=== PATIENT | male | born 1935 | race Caucasian/White ===

== ENCOUNTER 2019-08-30 11:40 | Emergency (ER) | payer MEDICARE, OTHER, SELFPAY ==
[2019-08-30 11:45] VITALS: BP 166/71; PULSE 74; RESP 20; TEMP 36.6; O2SAT 98; BMI 25.0
--- NOTE | 2019-08-30 12:01 | DI.CT.S_ITS ---
PROCEDURE: CT HEAD/BRAIN WO CON INDICATIONS: Ground level fall last night TECHNIQUE: Noncontrast 4.5 mm thick angled axial sections acquired from the foramen magnum to the vertex, with coronal and sagittal reformats. For radiation dose reduction, the following was used: automated exposure control, adjustment of mA and/or kV according to patient size. COMPARISON: None. FINDINGS: Image quality: Excellent. CSF spaces: Basal cisterns are patent. No extra-axial fluid collections. The ventricles are symmetric in size and shape. Brain: No intracranial bleeds or masses. There is cerebral volume loss for age, with resultant ventricular and sulcal prominence. There are periventricular and deep white matter chronic small vessel ischemic changes. There is intracranial internal carotid artery and vertebral artery atherosclerosis. Skull and face: Calvarium and visualized facial bones appear intact, without suspicious lesions. Sinuses: Polypoid mucosal thickening noted in the maxillary sinuses bilaterally. The mastoids are clear. IMPRESSION: No acute intracranial disease process. Dictated by: Janett Bautista MD, PhD on 08/30/2019 at 13:08 Approved by: Janett Bautista MD, PhD on 08/30/2019 at 13:11
[2019-08-30 12:27] LABS: Add Manual Diff / Slide Review NO; Basophils Absolute Auto 0 /uL (0-100); Basophils Percent Auto 0.7 % (0-2); Eosinophils Absolute Auto 0 /uL (0-450); Eosinophils Percent Auto 0.5 % (2-4); Hematocrit 33.1 % (41-53); Hemoglobin 11.4 g/dL (13.5-17.5); Lymphocytes Absolute Auto 1300 /uL (1100-4500); Lymphocytes Percent Auto 20.4 % (25-40); Mean Corpuscular HGB Conc 34.5 % (30-36); Mean Corpuscular Hemoglobin 32.7 PG (26-34); Mean Corpuscular Volume 94.8 fL (80-100); Monocytes Absolute Auto 700 /uL (0-900); Monocytes Percent Auto 11.2 % (3-14); Neutrophils Absolute Auto 4300 /uL (1500-7000); Neutrophils Percent Auto 67.2 % (50-75); Platelet Count 211 X10^3/uL (150-400); Red Blood Cell Count 3.49 X10^6/uL (4.5-5.9); Red Cell Distribution Width 14.7 % (11.6-14.8); White Blood Cell Count 6.3 X10^3/uL (4.5-11.0)
[2019-08-30 12:42] LABS: Albumin 4.4 g/dL (3.5-5.0); Albumin Globulin Ratio 1.4 (1.0-2.8); Alkaline Phosphatase 94 U/L (38-126); Aspartate Aminotransferase 31 IU/L (17-59); BUN Creatinine Ratio 13.8 (6-22); Bilirubin Total 0.7 mg/dL (0.2-1.3); Blood Urea Nitrogen 12 mg/dL (9-20); Calcium 9.5 mg/dL (8.4-10.2); Carbon Dioxide 28 mmol/L (22-32); Chloride 103 mmol/L (98-107); Estimated Glomerular Filt Rate > 60.0 mL/min (>60); Globulin 3.2 g/dL (1.7-4.1); Glucose 93 mg/dL (80-110); HEMOLYSIS < 15 (0-50); Potassium 4.4 mmol/L (3.4-5.1); Sodium 137 mmol/L (137-145); Total Protein 7.6 g/dL (6.3-8.2)
[2019-08-30] MEDS: MORPHINE 2 MG/ML INJ IV (12:46)
--- NOTE | 2019-08-30 12:48 | DI.CT.S_ITS ---
PROCEDURE: CT CHEST ABD PEL W CON INDICATIONS: glf, rib pain, abd pain TECHNIQUE: After the administration of intravenous contrast, 5 mm thick sections acquired from the lung apices to the symphysis. 2.5 mm thick coronal and sagittal reformats were acquired. Additional 7 mm thick coronal maximum intensity projection (MIP) reformats acquired through the lungs. Optional 10-minute delayed imaging may be performed from the kidneys to the bladder. For radiation dose reduction, the following was used: automated exposure control, adjustment of mA and/or kV according to patient size. COMPARISON: [facility], CT, CHEST WITH CONTRAST, 08/18/2010, 7:53. [facility], CR, XR CHEST 1 VIEW, 04/23/2019, 21:59. FINDINGS: Image quality: Excellent. CHEST: Lungs: No pulmonary contusions or lacerations. No acute airspace opacities. No pneumothorax or hemothorax. Calcified granuloma, right upper lobe, image 100/2. 3 mm pleural-based density, right lung, image 191/2. Reference image 100/2. Central and peripheral airways appear patent and normal in caliber. Mediastinum: No mediastinal hematomas. Heart size is normal. No pericardial effusion. Remote CABG. Advanced atherosclerotic coronary calcifications. Thoracic aorta and pulmonary arteries demonstrate normal size and enhancement. No mediastinal or hilar adenopathy. Calcified subcarinal mediastinal lymph node. Calcified right hilar lymph node. Findings consistent with chronic granulomatous disease. Esophagus is normal in caliber. Moderate hiatal hernia. Chest wall: Subtle, nondisplaced fractures of the lateral right 8th and 9th ribs. subcutaneous emphysema. No axillary or supraclavicular adenopathy. Thyroid gland is unremarkable as visualized. ABDOMEN: Solid organs: Liver is normal in size and enhancement, without lacerations. Gallbladder is unremarkable. Biliary system is non-dilated. Pancreas enhances normally, without transection. Spleen is normal in size and enhancement, without lacerations. Calcified splenic granuloma No adrenal hematomas. Both kidneys enhance normally, without hydronephrosis or lacerations. Peritoneum and bowel: No free fluid or air. Unenhanced bowel loops demonstrate normal wall thickness and caliber. Sigmoid diverticulosis. Nodes and vessels: No retroperitoneal or mesenteric adenopathy. Aorta and inferior vena cava are normal in size and enhancement. Advanced abdominal aortic atherosclerotic calcifications. Miscellaneous: No ventral hernias. PELVIS: Genitourinary: Bladder wall is mildly thickened. Miscellaneous: No inguinal hernias or adenopathy. Bones: Pelvic ring and hip joints appear intact. No vertebral compression fractures. A calcified free disc fragment behind T12 results in mild canal stenosis. IMPRESSION: 1. Subtle nondisplaced fractures of the lateral right 8th and 9th ribs with no evidence of underlying pneumothorax. 2. No other significant sequelae of acute trauma. 3. Advanced coronary atherosclerosis, aortic atherosclerosis. 4. Sigmoid diverticulosis. 5. Moderate hiatal hernia. Dictated by: Andrew Hirsch M.D. on 08/30/2019 at 13:22 Approved by: Andrew Hirsch M.D. on 08/30/2019 at 13:33
[2019-08-30 12:58] LABS: Alanine Aminotransferase 14 IU/L (<50)
[2019-08-30 13:35] VITALS: BP 141/63; PULSE 71; RESP 16; O2SAT 99
[2019-08-30] MEDS: LIDOCAINE PATCH 1 EACH ADH..PATCH TOP (13:45)
--- NOTE | 2019-08-30 15:32 | ED_ITS ---
HPI - Fall <JEWEL Gibson - Last Filed: 08/30/19 15:38> General Chief Complaint: Fall Stated Complaint: thinks broke rib, right back pain Time Seen by Provider: 08/30/19 11:49 Source: patient Mode of arrival: Wheelchair Limitations: no limitations History of Present Illness HPI Narrative: The patient is an 84-year-old male former smoker with history of bypass surgery who presents with a chief complaint of right-sided rib pain after ground level fall yesterday. He had a mechanical fall when he was in his socks on a hardwood floor, landed with his right side of his ribs into his chair. He now complains of painful deep breathing, pain to his ribs, radiating around his abdomen. He is not initially sure whether not he lost consciousness, does not think he does. He denies any pain in his neck or back. He denies any shortness of breath, just painful deep breathing. He has not taken anything for pain. He denies any numbness or tingling. He questions whether not his ribs are broken. Given that the patient had a ground level fall with suspected injury over the age of 65, modified trauma was activated for this patient. No known blood thinners, just aspirin. Patient later clarifies that he slipped and landed with his ribs on a chair, did not hit his head. Related Data Home Medications Medication Instructions Recorded Confirmed atorvastatin [Lipitor] #0 01/12/17 cyanocobalamin (vitamin B-12) 500 mcg OR Q DAY #0 01/12/17 isosorbide mononitrate #0 01/12/17 tamsulosin [Flomax] #0 01/12/17 Previous Rx's Medication Instructions Recorded lidocaine 1 patch TOP DAILY PRN #15 each 08/30/19 Allergies Allergy/AdvReac Type Severity Reaction Status Date / Time No Known Drug Allergies Allergy Verified 08/30/19 11:54 Review of Systems <JEWEL Gibson - Last Filed: 08/30/19 15:38> Review of Systems Narrative: GENERAL: Denies chills, fatigue, malaise, fever, sweats. HEENT: Denies sinus pain, ear pain, sore throat, difficulty swallowing, dizziness. RESPIRATORY: See HPI CARDIOVASCULAR: Denies chest pain, palpitations, orthopnea, edema, GASTROINTESTINAL: Denies nausea, vomiting, abdominal pain, diarrhea, constipation, melena. : Denies dysuria, frequency, incontinence, hematuria, urinary retention. MUSCULOSKELETAL: See HPI SKIN: Denies rash, skin lesions, or other NEUROLOGIC: Denies weakness, headache, numbness, change in speech, confusion, seizures, incoordination. PSYCHIATRIC: No concerning psychosocial issues. 12 point review of systems is negative except for those stated above Patient History <Farheen ZANE Dumont - Last Filed: 08/30/19 15:38> Social History Smoking Status: Unknown if ever smoked Smoking Status: Unknown if ever smoked alcohol intake frequency: holidays/special occasions only Substance Use Type: does not use Exam <Farheen DumontZANE - Last Filed: 08/30/19 15:38> Narrative Exam Narrative: GENERAL: This is a well-nourished, well-developed patient, in no acute distress HEAD: Atraumatic. Normocephalic. No temporal or scalp tenderness. EYES: Pupils equal round and reactive. Extraocular motions intact. No scleral icterus. No injection or drainage. ENT: Nose without bleeding, purulent drainage or septal hematoma. Throat without erythema, tonsillar hypertrophy or exudate. Uvula midline. Airway patent. NECK: Trachea midline. No JVD or lymphadenopathy. Supple, nontender, no meningeal signs. CARDIOVASCULAR: Regular rate and rhythm without murmurs, gallops, or rubs. RESPIRATORY: Clear to auscultation. Breath sounds equal bilaterally. No wheezes, rales, or rhonchi. Pain to palpation of right lateral ribs. Pain to lateral chest wall compression as well as anterior posterior chest wall compression. GASTROINTESTINAL: Abdomen soft, non-tender, nondistended. No hepato- splenomegaly, or palpable masses. No guarding. EXTREMITIES: No clubbing, cyanosis, or edema. No joint tenderness, effusion, or edema noted. BACK: Nontender without deformity or crepitance. No flank tenderness. No pain to palpation of CT or L-spine. NEURO: AOx3. SKIN: No rash or erythema on visible skin. No erythema ecchymosis laceration or abrasion noted over left lateral ribs. Initial Vital Signs Initial Vital Signs: Vital Signs Temperature 97.9 F 08/30/19 11:45 Pulse Rate 74 08/30/19 11:45 Respiratory Rate 08/30/19 11:45 Blood Pressure 166/71 H 08/30/19 11:45 Pulse Oximetry 98 08/30/19 11:45 <Jorge L Castro MD - Last Filed: 08/30/19 18:30> Initial Vital Signs Initial Vital Signs: Vital Signs Temperature 97.9 F 08/30/19 11:45 Pulse Rate 74 08/30/19 11:45 Respiratory Rate 08/30/19 11:45 Blood Pressure 166/71 H 08/30/19 11:45 Pulse Oximetry 98 08/30/19 11:45 Scores <JEWEL Gibson - Last Filed: 08/30/19 15:38> GCS Renan coma scale eye opening: Spontaneous [place] coma scale verbal response: Orientated Renan coma scale motor response: Obey commands [place] coma scale total score: 15 Nexus Score for C-Spine Focal Neurologic deficit present: No Midline spinal tenderness present: No Altered level of conciousness present: No Intoxication present: No Distracting Injury Present: No Nexus Criteria for C-spine: 0 Course <JEWEL Gibson - Last Filed: 08/30/19 15:38> Orders Ordered: ED Orders 08/30/19 12:01 CT head/brain wo con Stat 08/30/19 12:15 Complete Blood Count AUTO DIFF Stat Comprehensive Metabolic Panel Stat 08/30/19 12:48 CT chest abd pel w con Stat 08/30/19 13:43 RT Consult Eval and Treat NOW Discontinued Medications Lidocaine (Lidoderm) 1 each TOP NOW ONE Stop: 08/30/19 13:44 Last Admin: 08/30/19 13:45 Dose: 1 each Documented by: CTRFERNANDA Morphine Sulfate (Morphine) 2 mg IV NOW ONE Stop: 08/30/19 12:02 Last Admin: 08/30/19 12:46 Dose: 2 mg Documented by: RANJANA Vital Signs Vital signs: Vital Signs - 8 hr 08/30/19 11:45 08/30/19 13:35 Temperature 97.9 F Pulse Rate 74 71 Respiratory Rate 20 16 Blood Pressure 166/71 H 141/63 H Pulse Oximetry 98 99 <Jorge L Castro MD - Last Filed: 08/30/19 18:30> Orders Ordered: ED Orders 08/30/19 12:01 CT head/brain wo con Stat 08/30/19 12:15 Complete Blood Count AUTO DIFF Stat Comprehensive Metabolic Panel Stat 08/30/19 12:48 CT chest abd pel w con Stat 08/30/19 13:43 RT Consult Eval and Treat NOW Discontinued Medications Lidocaine (Lidoderm) 1 each TOP NOW ONE Stop: 08/30/19 13:44 Last Admin: 08/30/19 13:45 Dose: 1 each Documented by: SHALA Morphine Sulfate (Morphine) 2 mg IV NOW ONE Stop: 08/30/19 12:02 Last Admin: 08/30/19 12:46 Dose: 2 mg Documented by: RANJANA Vital Signs Vital signs: Vital Signs - 8 hr 08/30/19 11:45 08/30/19 13:35 Temperature 97.9 F Pulse Rate 74 71 Respiratory Rate 20 16 Blood Pressure 166/71 H 141/63 H Pulse Oximetry 98 99 MDM - Fall <MIKE Gibson-BC - Last Filed: 08/30/19 15:38> Lab Data Result diagrams: 08/30/19 12:15 08/30/19 12:15 Labs: Lab Results 08/30/19 08/30/19 Range/Units 12:15 12:15 WBC 6.3 (4.5-11.0) X10^3/uL RBC 3.49 L (4.5-5.9) X10^6/uL Hgb 11.4 L (13.5-17.5) g/dL Hct 33.1 L (41-53) % MCV 94.8 (80-100) fL MCH 32.7 (26-34) PG MCHC 34.5 (30-36) % RDW 14.7 (11.6-14.8) % Plt Count 211 (150-400) X10^3/uL Neut % (Auto) 67.2 (50-75) % Lymph % (Auto) 20.4 L (25-40) % [place] % (Auto) 11.2 (3-14) % Eos % (Auto) 0.5 L (2-4) % Baso % (Auto) 0.7 (0-2) % Neut # (Auto) 4300 (4075-3246) /uL Lymph # (Auto) 1300 (7427-3102) /uL [place] # (Auto) 700 (0-900) /uL Eos # (Auto) 0 (0-450) /uL Baso # (Auto) 0 (0-100) /uL Sodium 137 (137-145) mmol/L Potassium 4.4 (3.4-5.1) mmol/L Chloride 103 (98-107) mmol/L Carbon Dioxide 28 (22-32) mmol/L BUN 12 (9-20) mg/dL Creatinine 0.87 (0.66-1.25) mg/dL Estimated GFR > 60.0 (>60) mL/min BUN/Creatinine Ratio 13.8 (6-22) Glucose 93 (80-110) mg/dL Calcium 9.5 (8.4-10.2) mg/dL Total Bilirubin 0.7 (0.2-1.3) mg/dL AST 31 (17-59) IU/L ALT 14 (<50) IU/L Alkaline Phosphatase 94 (38-126) U/L Total Protein 7.6 (6.3-8.2) g/dL Albumin 4.4 (3.5-5.0) g/dL Globulin 3.2 (1.7-4.1) g/dL Albumin/Globulin Ratio 1.4 (1.0-2.8) Imaging Data CT scan - abdomen/pelvis: Radiologist's Impression: [address] [place] [address] CT Scan Report Signed Patient: Janett Mix [facility]#: [id number] : 7Acct:[id number] Age/Sex: 84 / MDate of Service: 08/30/19 Loc: ED Accession Number: [id number] Procedure: CT chest abd pel w con Ordering Provider: Farheen Dumont [facility] PROCEDURE: CT CHEST ABD PEL W CON INDICATIONS: glf, rib pain, abd pain TECHNIQUE: After the administration of intravenous contrast, 5 mm thick sections acquired from the lung apices to the symphysis. 2.5 mm thick coronal and sagittal reformats were acquired. Additional 7 mm thick coronal maximum intensity projection (MIP) reformats acquired through the lungs. Optional 10-minute delayed imaging may be performed from the kidneys to the bladder. For radiation dose reduction, the following was used: automated exposure control, adjustment of mA and/or kV according to patient size. COMPARISON: [facility], CT, CHEST WITH CONTRAST, 08/18/2010, 7:53. [facility], CR, XR CHEST 1 VIEW, 04/23/2019, 21:59. FINDINGS: Image quality: Excellent. CHEST: Lungs: No pulmonary contusions or lacerations. No acute airspace opacities. No pneumothorax or hemothorax. Calcified granuloma, right upper lobe, image 100/2. 3 mm pleural-based density, right lung, image 191/2. Reference image 100/2. Central and peripheral airways appear patent and normal in caliber. Mediastinum: No mediastinal hematomas. Heart size is normal. No pericardial effusion. Remote CABG. Advanced atherosclerotic coronary calcifications. Thoracic aorta and pulmonary arteries demonstrate normal size and enhancement. No mediastinal or hilar adenopathy. Calcified subcarinal mediastinal lymph node. Calcified right hilar lymph node. Findings consistent with chronic granulomatous disease. Esophagus is normal in caliber. Moderate hiatal hernia. Chest wall: Subtle, nondisplaced fractures of the lateral right 8th and 9th r ibs. subcutaneous emphysema. No axillary or supraclavicular adenopathy. Thyroid gland is unremarkable as visualized. ABDOMEN: Solid organs: Liver is normal in size and enhancement, without lacerations. Gallbladder is unremarkable. Biliary system is non-dilated. Pancreas enhances normally, without transection. Spleen is normal in size and enhancement, without lacerations. Calcified splenic granuloma No adrenal hematomas. Both kidneys enhance normally, without hydronephrosis or lacerations. Peritoneum and bowel: No free fluid or air. Unenhanced bowel loops demonstrate normal wall thickness and caliber. Sigmoid diverticulosis. Nodes and vessels: No retroperitoneal or mesenteric adenopathy. Aorta and inferior vena cava are normal in size and enhancement. Advanced abdominal aortic atherosclerotic calcifications. Miscellaneous: No ventral hernias. PELVIS: Genitourinary: Bladder wall is mildly thickened. Miscellaneous: No inguinal hernias or adenopathy. Bones: Pelvic ring and hip joints appear intact. No vertebral compression fractures. A calcified free disc fragment behind T12 results in mild canal stenosis. IMPRESSION: 1. Subtle nondisplaced fractures of the lateral right 8th and 9th ribs with no evidence of underlying pneumothorax. 2. No other significant sequelae of acute trauma. 3. Advanced coronary atherosclerosis, aortic atherosclerosis. 4. Sigmoid diverticulosis. 5. Moderate hiatal hernia. Dictated by: Andrew Hirsch M.D. on 08/30/2019 at 13:22 Approved by: Andrew Hirsch M.D. on 08/30/2019 at 13:33 CT scan - head: Radiologist's Impression: [address] [place] [id number] Scan Report Signed Patient: Janett Mix [facility]#: [id number] : 7Acct:[id number] Age/Sex: 84 / MDate of Service: 08/30/19 Loc: ED Accession Number: [id number] Procedure: CT head/brain wo con Ordering Provider: Farheen Dumont CLIENT SERVICES ADMINISTRATOR- PROCEDURE: CT HEAD/BRAIN WO CON INDICATIONS: Ground level fall last night TECHNIQUE: Noncontrast 4.5 mm thick angled axial sections acquired from the foramen magnum to the vertex, with coronal and sagittal reformats. For radiation dose reduction, the following was used: automated exposure control, adjustment of mA and/or kV according to patient size. COMPARISON: None. FINDINGS: Image quality: Excellent. CSF spaces: Basal cisterns are patent. No extra-axial fluid collections. The ventricles are symmetric in size and shape. Brain: No intracranial bleeds or masses. There is cerebral volume loss for age, with resultant ventricular and sulcal prominence. There are periventricular and deep white matter chronic small vessel ischemic changes. There is intracranial internal carotid artery and vertebral artery atherosclerosis. Skull and face: Calvarium and visualized facial bones appear intact, without suspicious lesions. Sinuses: Polypoid mucosal thickening noted in the maxillary sinuses bilaterally. The mastoids are clear. IMPRESSION: No acute intracranial disease process. Dictated by: Janett Bautista MD, PhD on 08/30/2019 at 13:08 Approved by: Janett Bautista MD, PhD on 08/30/2019 at 13:11 [facility] Narrative Medical decision making narrative: The patient is an 84-year-old male who presents after a ground level slip and fall with a chief complaint of rib pain. Modified trauma activated given mechanism as well as age. Given his pain, CT was obtained of his chest abdomen pelvis. Head CT also obtained given mechanism as well as age and aspirin.. Patient was found to have two right lateral rib fractures. Patient was given a lidocaine patch, adamantly declined any pain medication or pills. He received evaluation by respiratory therapy as well as incentive spirometer teaching and splint cough teaching. I discussed at length the importance of following up with primary care provider the next few days. Also discussed coming back to emergency department for any acute concerns. Patient again declined any pain medications, stating that ?the pain isn't that bad.Encouraged PCP follow-up. The patient was ambulating around, stating that he wanted to go home. Patient has no questions or concerns upon discharge and states understanding of return precautions as well as follow-up care. <Jorge L Castro MD - Last Filed: 08/30/19 18:30> Lab Data Labs: Lab Results 08/30/19 08/30/19 Range/Units 12:15 12:15 WBC 6.3 (4.5-11.0) X10^3/uL RBC 3.49 L (4.5-5.9) X10^6/uL Hgb 11.4 L (13.5-17.5) g/dL Hct 33.1 L (41-53) % MCV 94.8 (80-100) fL MCH 32.7 (26-34) PG MCHC 34.5 (30-36) % RDW 14.7 (11.6-14.8) % Plt Count 211 (150-400) X10^3/uL Neut % (Auto) 67.2 (50-75) % Lymph % (Auto) 20.4 L (25-40) % [place] % (Auto) 11.2 (3-14) % Eos % (Auto) 0.5 L (2-4) % Baso % (Auto) 0.7 (0-2) % Neut # (Auto) 4300 (3674-4099) /uL Lymph # (Auto) 1300 (6094-6435) /uL [place] # (Auto) 700 (0-900) /uL Eos # (Auto) 0 (0-450) /uL Baso # (Auto) 0 (0-100) /uL Sodium 137 (137-145) mmol/L Potassium 4.4 (3.4-5.1) mmol/L Chloride 103 (98-107) mmol/L Carbon Dioxide 28 (22-32) mmol/L BUN 12 (9-20) mg/dL Creatinine 0.87 (0.66-1.25) mg/dL Estimated GFR > 60.0 (>60) mL/min BUN/Creatinine Ratio 13.8 (6-22) Glucose 93 (80-110) mg/dL Calcium 9.5 (8.4-10.2) mg/dL Total Bilirubin 0.7 (0.2-1.3) mg/dL AST 31 (17-59) IU/L ALT 14 (<50) IU/L Alkaline Phosphatase 94 (38-126) U/L Total Protein 7.6 (6.3-8.2) g/dL Albumin 4.4 (3.5-5.0) g/dL Globulin 3.2 (1.7-4.1) g/dL Albumin/Globulin Ratio 1.4 (1.0-2.8) Discharge Plan Departure Patient Disposition: Home Clinical Impression: Fall from ground level Rib fractures Qualifiers: Encounter type: initial encounter Rib fracture type: multiple ribs Fracture type: open Laterality: right Qualified Code(s): S22.41XB - Multiple fractures of ribs, right side, initial encounter for open fracture Discharge Date/Time: 08/30/19 14:35 Instructions: How to Use an Incentive Spirometer, DI for Rib Fracture, How to Prevent Falls Activity Restrictions/Additional Instructions: Thank you for trusting us with your care today. As discussed, you have fractures of your 8th and 9th ribs of your right side I sent a prescription of a pain patch to the [facility] pharmacy. You have declined oral pain medications several times. As discussed, please use the incentive spirometer to help prevent pneumonia Please follow-up with primary care provider in the next few days Please come back to the emergency department for any acute concerns Prescriptions: New lidocaine 5 % adhesive patch,medicated 1 patch TOP DAILY PRN (Reason: pain) Qty: 15 RF: 0 No Action atorvastatin [Lipitor] 40 MG tablet Qty: 0 RF: 0 tamsulosin [Flomax] 0.4 MG capsule,extended release 24hr Qty: 0 RF: 0 cyanocobalamin (vitamin B-12) 1,000 MCG tablet extended release 500 mcg OR Q DAY Qty: 0 RF: 0 isosorbide mononitrate 30 MG tablet extended release 24 hr Qty: 0 RF: 0 Referrals: [facility] [Provider Group] <Jorge L Castro MD - Last Filed: 08/30/19 18:30> Cosign ED Attending Cosignature Attestation: I was immediately available in the department for consultation. This documentation has been reviewed and I agree with assessment and plan. Supervised by Jorge L Castro MD
== END 2019-08-30 14:35 | disposition home or self-care (01) ==
PROVIDERS: Emergency Provider Nurse Practitioner Family
DX: S22.41XB Multiple fractures of ribs, right side, initial encounter for open fracture (principal); W18.30XA Fall on same level, unspecified, initial encounter; Z79.82 Long term (current) use of aspirin
CPT/HCPCS: 70450; 71260; 74177; 80053; 85025; 96374; 99284; J2270; Q9967

== ENCOUNTER 2019-09-07 11:25 | Emergency (ER) | payer MEDICARE, OTHER, SELFPAY ==
[2019-09-07 11:25] VITALS: BMI 25.5
--- NOTE | 2019-09-07 11:40 | DI.RAD.S_ITS ---
PROCEDURE: XR RIBS RT MIN 3V W CXR 1V INDICATIONS: fall/current broken rib 8 9. TECHNIQUE: 2 views of the right ribs were acquired, along with a single view chest. COMPARISON: None. FINDINGS: Surgical changes and devices: Sternotomy wires, prior cervical fusion plate from the past.. Bones and chest wall: No dislocations. No suspicious bony lesions. Overlying soft tissues appear unremarkable. There are minimally angulated acute appearing fractures involving the right lateral lower 8th, 9th and 10th ribs Lungs and pleura: No pleural effusions or pneumothorax. Lungs appear clear. Mediastinum: Mediastinal contours appear normal. Heart size is normal. IMPRESSION: Right lateral lower 8th through 10th rib fractures, acute in appearance Dictated by: Jaquan Nuno M.D. on 09/07/2019 at 12:33 Approved by: Jaquan Nuno M.D. on 09/07/2019 at 12:35
--- NOTE | 2019-09-07 13:49 | PC.NURSE ---
Patient came into the ED today complaining of 9/10 rib pain. Chest xray shows right 8th and 10th rib fractures. He does not report to have shortness of breath other than pain from ribs when breathing. He is alert and oriented. His daughter is at bedside.
[2019-09-07 13:54] VITALS: BP 143/66; PULSE 59; RESP 12; O2SAT 97
--- NOTE | 2019-09-07 14:08 | PC.NURSE ---
Patient came into the ED for xrays of his ribs. He states that he fell from a mechanical fall and does not have eye trouble. He did not feel dizzy or weak. He also does not have weakness.
[2019-09-07] MEDS: HYDROCODONE/ACET 5/325 TABLET 1 TAB PO (14:17)
--- NOTE | 2019-09-07 14:29 | ED_ITS ---
HPI - Fall <JEWEL Gibson - Last Filed: 09/07/19 15:57> General Chief Complaint: Fall Stated Complaint: Fell last night,previously fractured ribs a week Time Seen by Provider: 09/07/19 13:29 Source: patient Mode of arrival: Wheelchair Limitations: no limitations History of Present Illness HPI Narrative: The patient is an 84-year-old male former smoker with history of rib fractures and right-sided presents with a chief complaint of ground level falls yesterday. He states he tripped while in his shop, when he got tangled up in fishing netting. He states he landed on the cement after landing on his knees. He complains of right sided rib pain where his fractures were. He is concerned he broke another rib. Did not hit his head, denies any neck or back pain, denies any numbness or tingling. He was using lidocaine patches for his prior rib fractures, but developed a rash. He has stopped using them. He denies any abdominal pain, he denies any shortness of breath, states it is painful to laugh. Patient adamantly declines admission. He also states he does not want any imaging other than rib x-rays. He is adamant that he had a mechanical fall, did not get lightheaded and fall. Related Data Home Medications Medication Instructions Recorded Confirmed atorvastatin [Lipitor] #0 01/12/17 cyanocobalamin (vitamin B-12) 500 mcg OR Q DAY #0 01/12/17 isosorbide mononitrate #0 01/12/17 tamsulosin [Flomax] #0 01/12/17 Previous Rx's Medication Instructions Recorded lidocaine 1 patch TOP DAILY PRN #15 each 08/30/19 hydrocodone-acetaminophen [Quinn] 1 tab PO Q4-6H PRN #10 tab 09/07/19 Allergies Allergy/AdvReac Type Severity Reaction Status Date / Time lidocaine [From LidoPatch] AdvReac Blister Verified 09/07/19 11:42 menthol [From LidoPatch] AdvReac Blister Verified 09/07/19 11:42 Review of Systems <JEWEL Gibson - Last Filed: 09/07/19 15:57> Review of Systems Narrative: GENERAL: Denies chills, fatigue, malaise, fever, sweats. HEENT: Denies sinus pain, ear pain, sore throat, difficulty swallowing, dizziness. RESPIRATORY: See HPI CARDIOVASCULAR: Denies chest pain, palpitations, orthopnea, edema, GASTROINTESTINAL: Denies nausea, vomiting, abdominal pain, diarrhea, constipation, melena. : Denies dysuria, frequency, incontinence, hematuria, urinary retention. MUSCULOSKELETAL: See HPI SKIN: See HPI NEUROLOGIC: Denies weakness, headache, numbness, change in speech, confusion, seizures, incoordination. PSYCHIATRIC: No concerning psychosocial issues. 12 point review of systems is negative except for those stated above Patient History <Farheen HadleyMIKE aguilera- - Last Filed: 09/07/19 15:57> Social History Smoking Status: Unknown if ever smoked Smoking Status: Unknown if ever smoked alcohol intake frequency: holidays/special occasions only Substance Use Type: does not use Exam <Farheen JONAH DumontP- - Last Filed: 09/07/19 15:57> Narrative Exam Narrative: GENERAL: This is a well-nourished, well-developed patient, no acute distress HEAD: Atraumatic. Normocephalic. No temporal or scalp tenderness. EYES: Pupils equal round and reactive. Extraocular motions intact. No scleral icterus. No injection or drainage. ENT: Nose without bleeding, purulent drainage or septal hematoma. Airway patent. NECK: Trachea midline. No JVD or lymphadenopathy. Supple, nontender, no meningeal signs. CARDIOVASCULAR: Regular rate and rhythm RESPIRATORY: Clear to auscultation. Breath sounds equal bilaterally. No wheezes, rales, or rhonchi. No cough. No increased respiratory effort. No accessory muscle use. Pain to palpation right lateral ribs. Pain to anterior posterior c hest wall compression as well as lateral chest wall compression. GASTROINTESTINAL: Abdomen soft, non-tender, nondistended. No hepato- splenomegaly, or palpable masses. No guarding. EXTREMITIES: No clubbing, cyanosis, or edema. No joint tenderness, effusion, or edema noted. BACK: Nontender without deformity or crepitance. No flank tenderness. NEURO: AOx3. SKIN: Localized erythema noted area of lidocaine patch, right posterior ribs. No laceration or abrasion noted. Initial Vital Signs Initial Vital Signs: Vital Signs Pulse Rate 59 L 09/07/19 13:54 Respiratory Rate 12 09/07/19 13:54 Blood Pressure 143/66 H 09/07/19 13:54 Pulse Oximetry 97 09/07/19 13:54 <Jefferson Rodgers MD - Last Filed: 09/08/19 08:02> Initial Vital Signs Initial Vital Signs: Vital Signs Pulse Rate 59 L 09/07/19 13:54 Respiratory Rate 12 09/07/19 13:54 Blood Pressure 143/66 H 09/07/19 13:54 Pulse Oximetry 97 09/07/19 13:54 Scores <JEWEL Gibson - Last Filed: 09/07/19 15:57> GCS Renan coma scale eye opening: Spontaneous Renan coma scale verbal response: Orientated Renan coma scale motor response: Obey commands Webster coma scale total score: 15 Nexus Score for C-Spine Focal Neurologic deficit present: No Midline spinal tenderness present: No Altered level of conciousness present: No Intoxication present: No Distracting Injury Present: No Nexus Criteria for C-spine: 0 Course <JEWEL Gibson - Last Filed: 09/07/19 15:57> Orders Ordered: Discontinued Medications Hydrocodone Bitart/Acetaminophen (Quinn 5/325) 1 tab PO NOW ONE Stop: 09/07/19 14:10 Last Admin: 09/07/19 14:17 Dose: 1 tab Documented by: MERLY Vital Signs Vital signs: Vital Signs - 8 hr 09/07/19 13:54 09/07/19 14:59 09/07/19 15:00 Pulse Rate 59 L 63 63 Respiratory Rate 12 14 14 Blood Pressure 143/66 H 145/65 H 145/65 H Pulse Oximetry 97 99 99 <Jefferson Rodgers MD - Last Filed: 09/08/19 08:02> Orders Ordered: Discontinued Medications Hydrocodone Bitart/Acetaminophen (Quinn 5/325) 1 tab PO NOW ONE Stop: 09/07/19 14:10 Last Admin: 09/07/19 14:17 Dose: 1 tab Documented by: MERLY Vital Signs Vital signs: Vital Signs - 8 hr 09/07/19 13:54 09/07/19 14:59 09/07/19 15:00 Pulse Rate 59 L 63 63 Respiratory Rate 12 14 14 Blood Pressure 143/66 H 145/65 H 145/65 H Pulse Oximetry 97 99 99 MDM - Fall <Farheen Dumont [employer] - Last Filed: 09/07/19 15:57> [facility] Narrative Medical decision making narrative: The patient is an 84-year-old male who presents with a chief complaint of a mechanical fall yesterday. He is concerned about his previous rib fractures, for which he was seen on 08/30/2019. He is noted to have 2 right-sided rib fractures that time, now has 3. Patient adamantly declines any further imaging, is not concerned about head pain or neck pain. He denies any head pain or neck pain, the only imaging that he will consent to are rib films. The patient is alert oriented, competent to make his own decisions. He received Quinn for pain and feels much improved. Respiratory therapy saw him to do splint cough lea hector, reminder of IS. The patient adamantly does not want to be considered for admission to the hospital, states he going home regardless. I discussed at length the importance of following up with primary care provider. Encouraged him to go talk to her about physical therapy given that he has had multiple mechanical falls in the past few weeks. Patient and daughter state understanding, have no questions or concerns. I discussed at length again come back to the emergency department for any acute concerns at any point. Patient has no questions or concerns upon discharge. States understanding return precautions as well as follow-up care. Patient ambulates steady outside in the emergency department Discharge Plan Departure Patient Disposition: Home Clinical Impression: Fall from ground level Rib fractures Qualifiers: Encounter type: initial encounter Rib fracture type: multiple ribs Fracture type: closed Laterality: right Qualified Code(s): S22.41XA - Multiple fractures of ribs, right side, initial encounter for closed fracture Discharge Date/Time: 09/07/19 15:02 Instructions: How to Use an Incentive Spirometer, DI for Rib Fracture, How to Prevent Falls Activity Restrictions/Additional Instructions: Thank you for trusting us with your care today. As discussed, you have a 3rd rib fracture on your right side. Please do your best to stop falling. I suggest following up with primary care provider. Physical therapy may be helpful for you. Please come back to the emergency department for any acute concerns. As discuss ed, you have declined further imaging, and have declined to the possibility of admission. Please remember that you can come back to the emergency department for any acute concerns. Please keep using her incentive spirometer etcetera I have given you a prescription of a narcotic for pain. Be aware that this can be constipating and sedating. I encouraged taking with a stool softener, pushing fluids and fiber. Do not take and drive, operate heavy machinery, etc. Do not combine it with any other sedating substances such as alcohol. The combination of narcotics and alcohol and/or other sedatives can be lethal. Prescriptions: New hydrocodone-acetaminophen [Quinn] 5-325 mg tablet 1 tab PO Q4-6H PRN (Reason: pain) Qty: 10 RF: 0 No Action atorvastatin [Lipitor] 40 MG tablet Qty: 0 RF: 0 tamsulosin [Flomax] 0.4 MG capsule,extended release 24hr Qty: 0 RF: 0 cyanocobalamin (vitamin B-12) 1,000 MCG tablet extended release 500 mcg OR Q DAY Qty: 0 RF: 0 isosorbide mononitrate 30 MG tablet extended release 24 hr Qty: 0 RF: 0 lidocaine 5 % adhesive patch,medicated 1 patch TOP DAILY PRN (Reason: pain) Qty: 15 RF: 0 Referrals: [facility] [Outside]
[2019-09-07 14:59] VITALS: BP 145/65; PULSE 63; RESP 14; O2SAT 99
[2019-09-07 15:00] VITALS: BP 145/65; PULSE 63; RESP 14; O2SAT 99
== END 2019-09-07 15:02 | disposition home or self-care (01) ==
PROVIDERS: Emergency Provider Nurse Practitioner Family
DX: S22.41XA Multiple fractures of ribs, right side, initial encounter for closed fracture (principal); W18.30XA Fall on same level, unspecified, initial encounter
CPT/HCPCS: 71101; 99283

== ENCOUNTER 2020-05-16 13:21 | Emergency (ER) | payer MEDICARE, OTHER, SELFPAY ==
[2020-05-16 13:25] VITALS: BP 132/66; PULSE 80; RESP 16; TEMP 36.2; O2SAT 99; BMI 22.1
--- NOTE | 2020-05-16 13:26 | DI.RAD.S_ITS ---
PROCEDURE: XR WRIST LT MIN 3V INDICATIONS: fall TECHNIQUE: 3 views of the wrist were acquired. COMPARISON: None. FINDINGS: Bones: Acute comminuted, slightly impacted and minimally displaced distal radial shaft fracture is seen with fracture line extending to radiocarpal joint space. Osteoarthritic changes are noted throughout wrist joints . No dislocation. No suspicious bony lesions. Scaphoid view: Not obtained. Soft tissues: No suspicious soft tissue calcifications. IMPRESSION: Acute comminuted, slightly impacted and minimally displaced intra-articular fracture of left distal radius. Wrist joint osteoarthritis. Dictated by: Efrain Lee M.D. on 05/16/2020 at 13:43 Approved by: Efrain Lee M.D. on 05/16/2020 at 13:46
--- NOTE | 2020-05-16 13:59 | ED.GENADULT ---
HPI - General Adult General Chief complaint: Extremity Injury, Upper Stated complaint: Left arm injury two weeks ago, wants looked at Time Seen by Provider: 05/16/20 13:26 Source: patient Mode of arrival: Ambulatory Limitations: no limitations History of Present Illness HPI narrative: Patient is an 85-year-old male here for evaluation of a left wrist injury. He states that 2 weeks ago he slipped and fell at home after he was walking on a hardwood floor in his socks. He sustained injury to his left wrist. He reported no other injuries from his event. He is not on blood thinners. Over the past 2 weeks he has noticed continued pain and swelling to his left wrist. No fevers. Related Data Home Medications Medication Instructions Recorded Confirmed atorvastatin [Lipitor] #0 01/12/17 cyanocobalamin (vitamin B-12) 500 mcg OR Q DAY #0 01/12/17 isosorbide mononitrate #0 01/12/17 tamsulosin [Flomax] #0 01/12/17 Previous Rx's Medication Instructions Recorded lidocaine 1 patch TOP DAILY PRN #15 each 08/30/19 hydrocodone-acetaminophen [[place]] 1 tab PO Q4-6H PRN #10 tab 09/07/19 tramadol [Ultram] 50 mg PO TID PRN #7 tab 05/16/20 Allergies Allergy/AdvReac Type Severity Reaction Status Date / Time lidocaine [From LidoPatch] AdvReac Blister Verified 09/07/19 11:42 menthol [From LidoPatch] AdvReac Blister Verified 09/07/19 11:42 Review of Systems Constitutional Constitutional: Denies fever(s) Cardiovascular Cardiovascular: Denies chest pain and Denies dyspnea Respiratory Respiratory: Denies dyspnea Gastrointestinal Gastrointestinal: Denies abdominal pain Musculoskeletal Musculoskeletal: Denies tingling Comments: Left wrist pain Integumentary/Breasts Skin/Breast: Denies rash Neurologic Neurologic: Denies tingling Hematologic/Lymphatic On Anticoagulants: No Patient History Medical History Chest pain, rule out acute myocardial infarction Social History Smoking Status: Unknown if ever smoked Smoking Status: Unknown if ever smoked alcohol intake frequency: holidays/special occasions only Substance Use Type: does not use Exam Initial Vital Signs Initial Vital Signs: Vital Signs Temperature 97.2 F L 05/16/20 13:25 Pulse Rate 80 05/16/20 13:25 Respiratory Rate 16 05/16/20 13:25 Blood Pressure 132/66 05/16/20 13:25 Pulse Oximetry 99 05/16/20 13:25 Const General: cooperative and comfortable Limitations: mental status not altered HENMT Head: normal to inspection and normocephalic Resp Effort & Inspection: normal respiratory effort Cardio Pulses: radial pulses present on the left Skin Lesions: no lesions Rashes: no rashes Neuro General: patient alert, patient awake and patient oriented x3 Extrem General: normal to inspection and capillary refill normal Other: Patient does have tenderness to palpation of the left wrist. Has tenderness with flexion and extension. Can pronate and supinate. His left elbow and left shoulder unremarkable. Psych Appearance: grossly normal and well kempt Procedures Orthopedic Splinting/Casting Injury #1: Side: left Upper Extremity Injury Location: wrist Upper Extremity Immobilizer: thumb spica Post splinting neuro exam: intact Post splinting vascular exam: intact Placed by: Nursing Course Orders Ordered: ED Orders 05/16/20 13:26 XR wrist LT min 3V Stat Vital Signs Vital signs: Vital Signs - 8 hr 05/16/20 13:25 Temperature 97.2 F L Pulse Rate 80 Respiratory Rate 16 Blood Pressure 132/66 Pulse Oximetry 99 Medical Decision Making Imaging Data Extremity x-ray #1: Radiologist's Impression: [address] [id number] ReportSigned Patient: Janett Mix [facility]#: [id number]: 1935cct:[id number]/Sex: 85 / MDate of Service: 05/16/20Loc: EDAccession Number: [id number] Procedure: XR wrist LT min 3V Ordering Provider: Raymundo Reich D.O. PROCEDURE: XR WRIST LT MIN 3V INDICATIONS: fall TECHNIQUE: 3 views of the wrist were acquired. COMPARISON: None. FINDINGS: Bones: Acute comminuted, slightly impacted and minimally displaced distal radial shaft fracture is seen with fracture line extending to radiocarpal joint space. Osteoarthritic changes are noted throughout wrist joints . No dislocation. No suspicious bony lesions. Scaphoid view: Not obtained. Soft tissues: No suspicious soft tissue calcifications. IMPRESSION: Acute comminuted, slightly impacted and minimally displaced intra-articular fracture of left distal radius. Wrist joint osteoarthritis. Dictated by: Efrain Lee M.D. on 05/16/2020 at 13:43 Approved by: Efrain Lee M.D. on 05/16/2020 at 13:46 MDM Narrative Medical decision making narrative: Patient is neurovascularly intact. The x-rays do show a comminuted distal radius fracture. He is placed in a splint here in the ER. He has no other injuries from the event. He was given return precautions and follow-up instructions. He expressed understanding and agreement. Discharge Plan Departure Patient Disposition: Home Clinical Impression: Distal radius fracture, left Instructions: DI for Wrist Fracture, How to Take Care of Your Splint Activity Restrictions/Additional Instructions: The splint that was placed today needs to stay on and stay clean and stay dry. I recommend that you contact the [facility] at [phone]. They can see you in follow-up for your wrist fracture. Continue all of your medications as directed. Return to the emergency department for any new or worsening symptoms Prescriptions: New tramadol [Ultram] 50 mg tablet 50 mg PO TID PRN (Reason: pain) Qty: 7 RF: 0 No Action atorvastatin [Lipitor] 40 MG tablet Qty: 0 RF: 0 tamsulosin [Flomax] 0.4 MG capsule,extended release 24hr Qty: 0 RF: 0 cyanocobalamin (vitamin B-12) 1,000 MCG tablet extended release 500 mcg OR Q DAY Qty: 0 RF: 0 isosorbide mononitrate 30 MG tablet extended release 24 hr Qty: 0 RF: 0 lidocaine 5 % adhesive patch,medicated 1 patch TOP DAILY PRN (Reason: pain) Qty: 15 RF: 0 hydrocodone-acetaminophen [[place]] 5-325 mg tablet 1 tab PO Q4-6H PRN (Reason: pain) Qty: 10 RF: 0
[2020-05-16 14:25] VITALS: BP 119/58; PULSE 61; RESP 14; O2SAT 97
== END 2020-05-16 14:27 | disposition home or self-care (01) ==
PROVIDERS: Emergency Provider Emergency Medicine
DX: S52.502A Unspecified fracture of the lower end of left radius, initial encounter for closed fracture (principal); W01.0XXA Fall on same level from slipping, tripping and stumbling without subsequent striking against object, initial encounter
CPT/HCPCS: 29125; 73110; 99283

== ENCOUNTER 2021-08-18 11:15 | Emergency (ER) | payer MEDICARE, OTHER, SELFPAY ==
[2021-08-18] VITALS (18 sets, daily range): BP systolic 113–179; BP diastolic 57–96; PULSE 56–82; RESP 18–22; TEMP 36.5–36.8; O2SAT 91–100; BMI 23.3
--- NOTE | 2021-08-18 | DI.RAD.S_ITS ---
PROCEDURE: XR CHEST 1V INDICATIONS: TRAUMA TECHNIQUE: One view of the chest was acquired. COMPARISON: [facility], , CHEST 1 VIEW, 01/12/2017, 23:10. FINDINGS: Surgical changes and devices: Status post median sternotomy. There has been pedicular elmira and screw fixation of the cervical spine. Lungs and pleura: Lungs are clear. No pleural effusions or pneumothorax. Mediastinum: Mediastinal contours appear normal. Heart size is normal. A hiatal hernia is seen, unchanged. Bones and chest wall: No suspicious bony lesions. Overlying soft tissues appear unremarkable. IMPRESSION: 1. No acute cardiopulmonary abnormality. 2. Large hiatal hernia. Dictated by: Dmitry Garcia M.D. on 08/18/2021 at 11:34 Approved by: Dmitry Garcia M.D. on 08/18/2021 at 11:36
--- NOTE | 2021-08-18 11:34 | DI.CT.S_ITS ---
PROCEDURE: CT HEAD/BRAIN WO CON INDICATIONS: fall , head injury on blood thinners TECHNIQUE: Noncontrast 4.5 mm thick angled axial sections acquired from the foramen magnum to the vertex, with coronal and sagittal reformats. For radiation dose reduction, the following was used: automated exposure control, adjustment of mA and/or kV according to patient size. COMPARISON: [facility], CT, CT HEAD/BRAIN WO CON, 08/30/2019, 12:40. FINDINGS: Image quality: Excellent. CSF spaces: Basal cisterns are patent. No extra-axial fluid collections. Ventricles are normal in size and shape. Brain: No midline shift. No intracranial masses or hemorrhage. Fleming-white matter interface is normal. 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 There is intracranial internal carotid artery and vertebral artery atherosclerosis. Skull and face: Calvarium and visualized facial bones are intact, without suspicious lesions. Sinuses: Visualized sinuses and mastoids are clear. IMPRESSION: 1. No acute intracranial abnormality. 2. Cerebral volume loss and small vessel ischemic changes. Dictated by: Dmitry Garcia M.D. on 08/18/2021 at 11:15 Approved by: Dmitry Garcia M.D. on 08/18/2021 at 11:19
--- NOTE | 2021-08-18 11:35 | DI.CT.S_ITS ---
PROCEDURE: CT CERVICAL SPINE WO CON INDICATIONS: fall, head injury on thinners TECHNIQUE: Noncontrast 3 mm thick sections acquired from the skull base to the T4 level. Sagittal and coronal reformats were then constructed. For radiation dose reduction, the following was used: automated exposure control, adjustment of mA and/or kV according to patient size. COMPARISON: None. FINDINGS: Image quality: Excellent. Bones: No fractures or dislocations. Visualized superior ribs are intact. C5, C6, and C7 demonstrate ACDF. There are multilevel degenerative changes. Soft tissues: Prevertebral soft tissues are normal in thickness. No paravertebral hematomas. No apical pneumothoraces. The carotid arteries have atherosclerotic calcifications. IMPRESSION: No acute traumatic abnormality of the cervical spine. Dictated by: Dmitry Garcia M.D. on 08/18/2021 at 11:19 Approved by: Dmitry Garcia M.D. on 08/18/2021 at 11:22
[2021-08-18 12:06] LABS: Hematocrit 25.4 % (41-53); Hemoglobin 8.6 g/dL (13.5-17.5); Mean Corpuscular Hemoglobin 30.5 PG (26-34); Mean Corpuscular Volume 89.7 fL (80-100); Platelet Count 225 X10^3/uL (150-400); Red Blood Cell Count 2.83 X10^6/uL (4.5-5.9); Red Cell Distribution Width 14.4 % (11.6-14.8); White Blood Cell Count 6.4 X10^3/uL (4.5-11.0)
[2021-08-18 12:12] LABS: Prothrombin Time 22.6 SECONDS (10.1-12.7)
[2021-08-18 12:14] LABS: PTT Partial Thromboplastin Tim 36 SECONDS (26.4-36.2)
[2021-08-18 12:15] LABS: Alanine Aminotransferase 9 IU/L (<50); Albumin 3.9 g/dL (3.5-5.0); Albumin Globulin Ratio 1.1 (1.0-2.8); Alkaline Phosphatase 68 U/L (38-126); Aspartate Aminotransferase 25 IU/L (17-59); BUN Creatinine Ratio 9.3 (6-22); Bilirubin Total 0.3 mg/dL (0.2-1.3); Blood Urea Nitrogen 10 mg/dL (9-20); Calcium 8.4 mg/dL (8.4-10.2); Carbon Dioxide 25 mmol/L (22-32); Chloride 105 mmol/L (98-107); Estimated Glomerular Filt Rate > 60 mL/min (>60); Globulin 3.4 g/dL (1.7-4.1); Glucose 83 mg/dL (80-110); HEMOLYSIS < 15 (0-50); Potassium 4.5 mmol/L (3.4-5.1); Sodium 136 mmol/L (137-145); Total Protein 7.3 g/dL (6.3-8.2)
[2021-08-18 12:24] LABS: Creatine Kinase 62 U/L (55-170); Ethanol (ETOH) 88 mg/dL; Lipase 148 U/L (23-300)
[2021-08-18 12:36] LABS: Troponin I < 0.012 ng/mL (0.01-0.034)
--- NOTE | 2021-08-18 12:44 | ED_ITS ---
HPI - Head Injury General Chief complaint: Trauma Stated complaint: fell last night hit head lost con takes blood thin Time Seen by Provider: 08/18/21 11:48 Source: patient Mode of arrival: Family Vehicle History of Present Illness HPI Narrative: Patient is an 86 year old male history of alcoholism, atrial fibrillation on Eliquis and aspirin, hyperlipidemia presenting today after a ground level fall last night. Daughter states that she stays with him during the day but he is at home alone at night. She went over today and found to get a large laceration on his head. She thinks he hit his head on a dresser he says that he possibly passed out got himself back up into a chair she said there was a large amount of blood in the chair. Patient denies headache vomiting numbness tingling weakness or chest pain. He denies any alcohol intake although daughter states otherwise. Related Data Home Medications Medication Instructions Recorded Confirmed atorvastatin 40 mg tablet (Lipitor) 80 mg PO DAILY ##0 01/12/17 08/18/21 cyanocobalamin (vitamin B-12) 1,000 mcg OR Q DAY ##0 01/12/17 08/18/21 1,000 mcg tablet,extended release isosorbide mononitrate 30 mg 30 mg PO DAILY ##0 01/12/17 08/18/21 tablet,extended release 24 hr apixaban 5 mg tablet 5 mg PO BID 08/18/21 08/18/21 aspirin 81 mg tablet 81 mg PO DAILY 08/18/21 08/18/21 dronedarone 400 mg tablet 400 mg PO BID 08/18/21 08/18/21 multivitamin 1 tab PO DAILY 08/18/21 08/18/21 pantoprazole 40 mg tablet,delayed 40 mg PO BID 08/18/21 08/18/21 release trazodone 50 mg tablet 50 mg PO BEDTIME PRN Insomnia 08/18/21 08/18/21 Allergies Allergy/AdvReac Type Severity Reaction Status Date / Time lidocaine [From LidoPatch] AdvReac Blister Verified 09/07/19 11:42 menthol [From LidoPatch] AdvReac Blister Verified 09/07/19 11:42 Review of Systems Review of Systems Narrative: GENERAL: Denies chills, fatigue, malaise, fever, sweats, travel HEENT: Denies sinus pain, ear pain, sore throat, difficulty swallowing, neck pain RESPIRATORY: Denies dyspnea, cough, wheezing, hemoptysis, sputum. CARDIOVASCULAR: Denies chest pain, palpitations, orthopnea, edema GASTROINTESTINAL: Denies nausea, vomiting, abdominal pain, diarrhea, constipation, melena. : Denies dysuria, frequency, incontinence, hematuria, urinary retention, flank pain. MUSCULOSKELETAL: Denies weakness, joint pain, or bony pain SKIN: No rash, no erythema, no pruritus NEUROLOGIC: See HPI PSYCHIATRIC: No concerning psychosocial issues. 12 point review of systems is negative except for those stated above and HPI Patient History Medical History Chest pain, rule out acute myocardial infarction Social History Smoking Status: Former smoker Smoking Status: Former smoker tobacco type: cigarettes alcohol intake frequency: 0-2 drinks per day Alcohol type: beer and hard liquor Substance Use Type: does not use Exam Initial Vital Signs Initial Vital Signs: Vital Signs Temperature 97.7 F 08/18/21 11:38 Pulse Rate 58 L 08/18/21 11:38 Respiratory Rate 22 08/18/21 11:38 Blood Pressure 179/71 H 08/18/21 11:38 Pulse Oximetry 100 08/18/21 11:38 Oxygen Delivery Method 08/18/21 11:38 GENERAL: Alert pleasant 86-year-old male HEENT: Head large laceration 5cm on the top of head 10 cm, no crepitations or depression NECK: Supple no vertebral tenderness CARDIOVASCULAR: Regular rate and rhythm without murmurs, rubs or gallops. RESPIRATORY: Breath sounds equal bilaterally, no wheezes rales or rhonchi. ABDOMEN: Soft, nontender. Normoactive bowel sounds all 4 quadrants. No guarding or rebound. EXTREMITIES: Normal range of motion, no clubbing or edema. Neurovascularly int act NEUROLOGICAL: Alert and oriented x4.Normal gait and speech. Senior Software Engineer strength equal bilaterally able to move both lower extremities SKIN: Laceration noted on top of scalp Procedures Laceration Repair Laceration 1: Size (cm): 5 Description: linear Depth: simple, single layer Skin layer closed with: violeta (2) Course Orders Ordered: ED Orders 08/18/21 11:34 CT head/brain wo con Stat 08/18/21 11:35 CT cervical spine wo con Stat 08/18/21 11:50 Complete Blood Count NO DIFF Stat Comprehensive Metabolic Panel Stat ETOH [Ethanol (ETOH)] Stat Lipase Stat PTT [Partial Thromboplastin Time] Stat Prothrombin Time INR Stat Troponin & CK Cardiac Panel Stat 08/18/21 12:05 EKG-12 Lead Stat 08/18/21 14:10 Hemoglobin and Hematocrit Stat 08/18/21 15:05 PRBC [Packed Cells] Stat Type and Screen Stat Vital Signs Vital signs: Vital Signs - 8 hr 08/18/21 11:38 08/18/21 15:12 08/18/21 15:04 Temperature 97.7 F Pulse Rate 58 L 61 Respiratory Rate 22 18 Blood Pressure 179/71 H 139/63 Pulse Oximetry 100 91 Oxygen Delivery Method Room Air 08/18/21 15:12 08/18/21 15:12 08/18/21 15:30 Temperature Pulse Rate 57 L Respiratory Rate 18 Blood Pressure 139/63 159/68 H Pulse Oximetry 98 Oxygen Delivery Method 08/18/21 15:30 08/18/21 16:19 08/18/21 16:00 Temperature 98.3 F Pulse Rate 58 L 58 L 57 L Respiratory Rate 21 18 Blood Pressure 144/96 H Pulse Oximetry 98 98 Oxygen Delivery Method 08/18/21 16:01 08/18/21 16:01 08/18/21 16:34 Temperature 98 F Pulse Rate 56 L 59 L Respiratory Rate 22 20 Blood Pressure 140/83 164/72 H Pulse Oximetry 98 Oxygen Delivery Method 08/18/21 16:18 08/18/21 16:18 08/18/21 16:30 Temperature Pulse Rate 59 L Respiratory Rate 20 Blood Pressure 144/96 H 164/72 H Pulse Oximetry 99 Oxygen Delivery Method 08/18/21 16:30 08/18/21 16:45 08/18/21 16:45 Temperature 98 F Pulse Rate 62 58 L Respiratory Rate 20 18 Blood Pressure 146/70 H Pulse Oximetry 99 98 Oxygen Delivery Method 08/18/21 17:00 08/18/21 17:01 08/18/21 17:01 Temperature 98 F Pulse Rate 69 69 Respiratory Rate 20 20 Blood Pressure 162/79 H 162/79 H Pulse Oximetry 98 Oxygen Delivery Method 08/18/21 17:15 08/18/21 17:15 08/18/21 17:30 Temperature Pulse Rate 70 Respiratory Rate 20 Blood Pressure 138/57 L 113/58 L Pulse Oximetry 98 Oxygen Delivery Method 08/18/21 17:30 08/18/21 17:40 08/18/21 17:40 Temperature 97.9 F Pulse Rate 78 79 Respiratory Rate 18 18 Blood Pressure 116/58 L Pulse Oximetry 98 98 Oxygen Delivery Method 08/18/21 17:45 08/18/21 17:45 08/18/21 18:11 Temperature 97.9 F Pulse Rate 82 82 Respiratory Rate 20 20 Blood Pressure 117/59 L 117/59 L Pulse Oximetry 97 98 Oxygen Delivery Method MDM - Head Injury Lab Data Result diagrams: 08/18/21 14:10 08/18/21 11:50 Labs: Lab Results 08/18/21 08/18/21 08/18/21 Range/Units 11:50 11:50 11:50 WBC 6.4 (4.5-11.0) X10^3/uL RBC 2.83 L (4.5-5.9) X10^6/uL Hgb 8.6 L (13.5-17.5) g/dL Hct 25.4 L (41-53) % MCV 89.7 (80-100) fL MCH 30.5 (26-34) PG MCHC 34.0 (30-36) % RDW 14.4 (11.6-14.8) % Plt Count 225 (150-400) X10^3/uL PT 22.6 H (10.1-12.7) SECONDS INR 2.0 H (0.9-1.3) APTT 36 (26.4-36.2) SECONDS Sodium 136 L (137-145) mmol/L Potassium 4.5 (3.4-5.1) mmol/L Chloride 105 (98-107) mmol/L Carbon Dioxide 25 (22-32) mmol/L BUN 10 (9-20) mg/dL Creatinine 1.08 (0.66-1.25) mg/dL Estimated GFR > 60 (>60) mL/min BUN/Creatinine Ratio 9.3 (6-22) Glucose 83 (80-110) mg/dL Calcium 8.4 (8.4-10.2) mg/dL Total Bilirubin 0.3 (0.2-1.3) mg/dL AST 25 (17-59) IU/L ALT 9 (<50) IU/L Alkaline Phosphatase 68 (38-126) U/L Total Creatine Kinase (55-170) U/L CK-MB (CK-2) CK-MB (CK-2) Rel Index Troponin I (0.01-0.034) ng/mL Total Protein 7.3 (6.3-8.2) g/dL Albumin 3.9 (3.5-5.0) g/dL Globulin 3.4 (1.7-4.1) g/dL Albumin/Globulin Ratio 1.1 (1.0-2.8) Lipase (23-300) U/L Ethyl Alcohol ( - 10) mg/dL Blood Type Antibody Screen Crossmatch 08/18/21 08/18/21 08/18/21 Range/Units 11:50 14:10 15:05 WBC (4.5-11.0) X10^3/uL RBC (4.5-5.9) X10^6/uL Hgb 7.7 L (13.5-17.5) g/dL Hct 23.0 L (41-53) % MCV (80-100) fL MCH (26-34) PG MCHC (30-36) % RDW (11.6-14.8) % Plt Count (150-400) X10^3/uL PT (10.1-12.7) SECONDS INR (0.9-1.3) APTT (26.4-36.2) SECONDS Sodium (137-145) mmol/L Potassium (3.4-5.1) mmol/L Chloride (98-107) mmol/L Carbon Dioxide (22-32) mmol/L BUN (9-20) mg/dL Creatinine (0.66-1.25) mg/dL Estimated GFR (>60) mL/min BUN/Creatinine Ratio (6-22) Glucose (80-110) mg/dL Calcium (8.4-10.2) mg/dL Total Bilirubin (0.2-1.3) mg/dL AST (17-59) IU/L ALT (<50) IU/L Alkaline Phosphatase (38-126) U/L Total Creatine Kinase 62 (55-170) U/L CK-MB (CK-2) TNP CK-MB (CK-2) Rel Index TNP Troponin I < 0.012 (0.01-0.034) ng/mL Total Protein (6.3-8.2) g/dL Albumin (3.5-5.0) g/dL Globulin (1.7-4.1) g/dL Albumin/Globulin Ratio (1.0-2.8) Lipase 148 (23-300) U/L Ethyl Alcohol 88 H ( - 10) mg/dL Blood Type A Negative Antibody Screen Negative Crossmatch See Detail Imaging Data CT scan - head: Radiologist's Impression: Acct:[id number] Age/Sex: 86 / M Date of Service: 08/18/21 Loc: ED Accession Number: [id number] ?? Procedure: CT head/brain wo con Ordering Provider: Mimi Childs D.O. PROCEDURE:? CT HEAD/BRAIN WO CON ? INDICATIONS:? fall , head injury on blood thinners ? TECHNIQUE:? Noncontrast 4.5 mm thick angled axial sections acquired from the foramen magnum to the vertex, with coronal and sagittal reformats.? For radiation dose reduction, the following was used:? automated exposure control, adjustment of mA and/or kV according to patient size.? ? COMPARISON:? [facility], CT, CT HEAD/BRAIN WO CON, 08/30/2019, 12:40. ? FINDINGS:? Image quality:? Excellent.? ? CSF spaces:? Basal cisterns are patent.? No extra-axial fluid collections.? Ventricles are normal in size and shape.? ? Brain:? No midline shift.? No intracranial masses or hemorrhage.? Fleming-white matter interface is normal. ? Subcortical and periventricular white matter hypodensities are consistent with microvascular ischemic disease.? There is intracranial internal carotid artery and vertebral artery atherosclerosis. ? Skull and face:? Calvarium and visualized facial bones are intact, without suspicious lesions.? ? Sinuses:? Visualized sinuses and mastoids are clear.? ? IMPRESSION:? 1. No acute intracranial abnormality. 2. Cerebral volume loss and small vessel ischemic changes.? ? ? Dictated by: Dmitry Garcia M.D. on 08/18/2021 at 11:15 ?? CT - cervical spine: Radiologist's Impression: [address] [place] [id number] Scan Report Signed Patient: Janett Mix MR#: [id number] : 1935 Acct:[id number] Age/Sex: 86 / M Date of Service: 08/18/21 Loc: ED Accession Number: [id number] ?? Procedure: CT cervical spine wo con Ordering Provider: Mimi Childs D.O. PROCEDURE:? CT CERVICAL SPINE WO CON ? INDICATIONS:? fall, head injury on thinners ? TECHNIQUE:? Noncontrast 3 mm thick sections acquired from the skull base to the T4 level.? Sagittal and coronal reformats were then constructed.? For radiation dose reduction, the following was used:? automated exposure control, adjustment of mA and/or kV according to patient size.? ? COMPARISON:? None. ? FINDINGS:? Image quality:? Excellent.? ? Bones:? No fractures or dislocations.? Visualized superior ribs are intact.? C5, C6, and C7 demonstrate ACDF.? There are multilevel degenerative changes. ? Soft tissues:? Prevertebral soft tissues are normal in thickness.? No paravertebral hematomas.? No apical pneumothoraces.? The carotid arteries have atherosclerotic calcifications. ? ? IMPRESSION:? No acute traumatic abnormality of the cervical spine. ? Dictated by: Dmitry Garcia M.D. on 08/18/2021 at 11:19 ? ? ECG Data Interpretation: Junctional rhythm rate 59 MDM Narrative Medical decision making narrative: Patient fell last night while drinking alcohol on Eliquis large laceration on his head and is now anemic. He is not a good candidate for Eliquis and needs to stop taking it. He received 1 unit of blood in the ED. He is hemodynamically stable. His laceration over his head was loosely approximated with 2 violeta. Patient ambulated to the restroom without any difficulty he has no neurologic deficits. Head CT and cervical CT are negative. Discharge Plan Departure Patient Disposition: Home Clinical Impression: Laceration of head, Anemia Instructions: DI for Laceration Repair -- Violeta, Closed Head Injury Activity Restrictions/Additional Instructions: *You have been diagnosed with closed head injury, anemia *What to do: At this time please have violeta removed from her head in about 7 days. You may shower. Wash with soap and water. If you should have your hemoglobin rechecked this week with your primary provider *Continue to take medications as directed Stop taking apixaban You may continue aspirin *Follow up with your primary care provider in 2-3 days or call [phone] *Return to ER if you should have increasing falls, persistent vomiting, redness drainage or any new, worsening or concerning symptoms Prescriptions: No Action atorvastatin [Lipitor] 40 MG tablet 80 mg PO DAILY Qty: 0 cyanocobalamin (vitamin B-12) 1,000 MCG tablet extended release 1,000 mcg OR Q DAY Qty: 0 isosorbide mononitrate 30 MG tablet extended release 24 hr 30 mg PO DAILY Qty: 0 multivitamin [Daily Multivitamin] Tablet 1 tab PO DAILY trazodone 50 mg Tablet 50 mg PO BEDTIME PRN (Reason: Insomnia) pantoprazole 40 mg Tablet,Delayed Release (Dr/Ec) 40 mg PO BID Adult Low Dose Aspirin 81 mg Tablet 81 mg PO DAILY dronedarone 400 mg Tablet 400 mg PO BID Rx Instructions: must administer with a meal/food apixaban 5 mg Tablet 5 mg PO BID Referrals: Miscellaneous,Doctor, MD [Primary Care Provider] - Visit Report Forms: Patient Portal/API
[2021-08-18 14:28] LABS: Hemoglobin 7.7 g/dL (13.5-17.5)
--- NOTE | 2021-08-18 17:53 | PC.NURSE ---
ambulatory independent. steady gate.
== END 2021-08-18 18:28 | disposition home or self-care (01) ==
PROVIDERS: Emergency Provider Emergency Medicine
DX: S01.01XA Laceration without foreign body of scalp, initial encounter (principal); W19.XXXA Unspecified fall, initial encounter; D64.9 Anemia, unspecified; R07.9 Chest pain, unspecified; Z79.01 Long term (current) use of anticoagulants
CPT/HCPCS: 12002; 36415; 36430; 70450; 71045; 72125; 80053; 80320; 82550; 83690; 84484; 85014; 85018; 85027; 85610; 85730; 86850; 86900; 86901; 93005; 93010; 99285; P9016

== ENCOUNTER 2023-12-06 13:29 | Emergency (ER) | payer MEDICARE, OTHER, SELFPAY ==
[2023-12-06] VITALS (9 sets, daily range): BP systolic 110–131; BP diastolic 57–82; PULSE 81–105; RESP 16–33; TEMP 35.4–36.7; O2SAT 83–100; BMI 21.6
--- NOTE | 2023-12-06 13:41 | DI.CT.S_ITS ---
PROCEDURE: CT CERVICAL SPINE WO CON INDICATIONS: fall, large head LAC, on thinners, unstable gait TECHNIQUE: Noncontrast 3 mm thick sections acquired from the skull base to the T4 level. Sagittal and coronal reformats were then constructed. For radiation dose reduction, the following was used: automated exposure control, adjustment of mA and/or kV according to patient size. COMPARISON: [facility], CT, CT HEAD/BRAIN WO CON, 12/06/2023, 13:47. (Additional prior imaging is not available for review from the archive at the time of this dictation.) FINDINGS: Image quality: Excellent. Bones: No fractures or dislocations. Visualized superior ribs are intact. Anterior fixation hardware can be seen C5 through C7, with disc spacers C5-C6 C6-C7. No findings of hardware failure or hardware loosening are seen. Multiple levels underlying cervical spine change seen including moderate to severe disc space narrowing at C4-C5 and C7-T1. Upper thoracic spine degenerative change can be seen. Sternotomy wires are seen. Soft tissues: Prevertebral soft tissues are normal in thickness. No paravertebral hematomas. No apical pneumothoraces. Atherosclerotic calcification is noted. IMPRESSION: No displaced fracture or traumatic subluxation. Intact appearing C5 through C7 anterior fixation hardware. Additional findings: Sternotomy Dictated by: Lito Gaines M.D. on 12/06/2023 at 13:17 Approved by: Lito Gaines M.D. on 12/06/2023 at 13:20
--- NOTE | 2023-12-06 13:41 | DI.CT.S_ITS ---
PROCEDURE: CT HEAD/BRAIN WO CON INDICATIONS: fall, large head LAC, on thinners, unstable gait TECHNIQUE: Noncontrast 4.5 mm thick angled axial sections acquired from the foramen magnum to the vertex, with coronal and sagittal reformats. For radiation dose reduction, the following was used: automated exposure control, adjustment of mA and/or kV according to patient size. COMPARISON: [facility], CT, CT CERVICAL SPINE WO CON, 12/06/2023, 13:47. (Additional prior imaging is not available for review from the archive at the time of this dictation.) FINDINGS: Image quality: Diagnostic. CSF spaces: Basal cisterns are patent. No extra-axial fluid collections. The ventricles are symmetric in size and shape. Brain: No intracranial bleeds or masses. There is cerebral volume loss for age, with resultant ventricular and sulcal prominence. There are periventricular and deep white matter chronic small vessel ischemic changes. There is intracranial internal carotid artery atherosclerosis. Skull and face: A moderate scalp hematoma can be seen on the right, without an associated fracture. Calvarium and visualized facial bones appear intact, without suspicious lesions. Sinuses: Visualized sinuses and mastoids are clear. IMPRESSION: Moderate right-sided scalp hematoma seen. No displaced calvarial fracture can be seen. No acute intracranial hemorrhage is seen. No acute intracranial process is seen. Dictated by: Lito Gaines M.D. on 12/06/2023 at 13:21 Approved by: Lito Gaines M.D. on 12/06/2023 at 13:21
[2023-12-06 14:12] LABS: Add Manual Diff / Slide Review NO; Basophils Absolute Auto 0 /uL (0-100); Basophils Percent Auto 0.2 % (0-2); Eosinophils Absolute Auto 0 /uL (0-450); Hematocrit 35.5 % (41-53); Hemoglobin 12.2 g/dL (13.5-17.5); Lymphocytes Absolute Auto 400 /uL (1100-4500); Lymphocytes Percent Auto 5.6 % (25-40); Mean Corpuscular HGB Conc 34.3 % (30-36); Mean Corpuscular Hemoglobin 36.6 PG (26-34); Mean Corpuscular Volume 106.9 fL (80-100); Monocytes Absolute Auto 500 /uL (0-900); Monocytes Percent Auto 7.8 % (3-14); Neutrophils Absolute Auto 5900 /uL (1500-7000); Neutrophils Percent Auto 86.4 % (50-75); Platelet Count 184 X10^3/uL (150-400); Red Blood Cell Count 3.32 X10^6/uL (4.5-5.9); Red Cell Distribution Width 13.4 % (11.6-14.8); White Blood Cell Count 6.8 X10^3/uL (4.5-11.0)
[2023-12-06 14:22] LABS: PTT Partial Thromboplastin Tim 32 SECONDS (25.1-36.5)
[2023-12-06 14:24] LABS: Alanine Aminotransferase 55 IU/L (<50); Albumin 3.3 g/dL (3.5-5.0); Alkaline Phosphatase 118 U/L (38-126); Aspartate Aminotransferase 109 IU/L (17-59); BUN Creatinine Ratio 8.1 (6-22); Bilirubin Total 1.1 mg/dL (0.2-1.3); Blood Urea Nitrogen 6 mg/dL (9-20); Calcium 8.2 mg/dL (8.4-10.2); Carbon Dioxide 20 mmol/L (22-32); Chloride 101 mmol/L (98-107); Creatine Kinase 288 U/L (55-170); Estimated Glomerular Filt Rate > 60 mL/min (>60); Globulin 3.4 g/dL (1.7-4.1); Glucose 102 mg/dL (80-110); HEMOLYSIS < 15 (0-50); Potassium 4.3 mmol/L (3.4-5.1); Sodium 135 mmol/L (137-145); Total Protein 6.7 g/dL (6.3-8.2)
[2023-12-06] MEDS: TET,DIPH,PERTUSS(ACELL),VAC/PF 0.5 ML SYRINGE IM (15:19)
--- NOTE | 2023-12-06 15:30 | DI.CT.S_ITS ---
PROCEDURE: CT LUMBAR SPINE WO CON INDICATIONS: lower back pain radiates down leg. able to ambulate TECHNIQUE: Noncontrast 3 mm thick sections acquired from the T12 level to the sacrum. Sagittal and coronal reformats were constructed. For radiation dose reduction, the following was used: automated exposure control. COMPARISON: [facility], CT, CT CERVICAL SPINE WO CON, 12/06/2023, 13:47. [facility], CT, CT HEAD/BRAIN WO CON, 12/06/2023, 13:47. [facility], CT, L-SPINE WITHOUT CONTRAST, 09/24/2016, 10:07. (Additional prior imaging is not available for review from the archive at the time of this dictation.) FINDINGS: Image quality: Excellent. Bones: No acute vertebral body compression fractures. No suspicious lytic or blastic bony lesions. No pars defects. Mild to moderate levoconvex scoliotic curvature is noted. T12-L1: Moderate loss of disc height is seen. Endplate moderate disc bulge is seen. Dense calcification can be seen along the posterior aspect of the T12 vertebral body and the T11 vertebral body. Moderate bilateral neural foraminal narrowing is seen. Moderate central canal narrowing is seen. When comparison is made with the prior images, these findings are similar. L1-L2: The disc height is relatively well preserved. Mild to moderate disc bulge is seen at this level. There is moderate left-sided and at least moderate right-sided neural foraminal narrowing. Moderate central canal narrowing is seen. When comparison is made with the prior images, these findings are similar. L2-L3: There is at least moderate loss of disc height seen on the right-side. Endplate irregularity and sclerosis can be seen. Bridging endplate osteophytes can be seen on the right, as on series 4, image 19. There is at least moderate bilateral neural foraminal narrowing, right worse than left. Mild central canal narrowing is seen. There is mild progression compared to 2017. L3-L4: The disc height is relatively well preserved. Moderate disc bulge is seen, which is eccentric to the right. There is moderate left-sided and moderate to severe right-sided neural foraminal narrowing. No significant central canal narrowing is seen. No significant change from the prior. L4-L5: The disc height is well preserved. Mild to moderate disc bulge is seen. Moderate to prominent facet hypertrophy can be seen at this level. There is moderate left-sided and moderate to severe right-sided neural foraminal narrowing. Mild central canal narrowing is seen. These degenerative changes are similar to 2017 L5-S1: At least moderate loss of disc height is seen at this level on the left side. Moderate disc bulge is seen at this level. Partially bridging endplate osteophytes can be seen on the left, as on series 4, image 21. Moderate facet joint hypertrophy is seen. There is at least moderate bilateral neural foraminal narrowing seen. Mild central canal narrowing is seen. Soft tissues: No retroperitoneal masses or hematomas. Visualized aorta is normal in caliber. Atherosclerotic calcification is noted. There is a moderate hiatal hernia. Colonic diverticulosis is seen, without findings of active diverticulitis. IMPRESSION: Negative for acute fracture. Multiple levels degenerative change can be seen, which are overall worst at L2-L3 and L5-S1. [id number] levoconvex lumbar scoliosis is seen. Additional findings: Moderate hiatal hernia Diverticulosis, without active diverticulitis Dictated by: Lito Gaines M.D. on 12/06/2023 at 15:10 Approved by: Lito Gaines M.D. on 12/06/2023 at 15:17
--- NOTE | 2023-12-06 16:10 | ED_ITS ---
HPI - Trauma General Chief Complaint: Trauma Stated Complaint: fell, cut head open, takes aspirin Time Seen by Provider: 12/06/23 13:48 Source: patient and family Mode of arrival: Family Vehicle Limitations: no limitations History of Present Illness HPI narrative: 86-year-old male history of alcoholism, atrial fibrillation on Eliquis and aspirin, dyslipidemia who presents after ground level fall. Patient has family with him during the daytime but who stays on his own at nighttime. Has a large laceration on his head. Patient's daughter went over to his house usual time and found him on the floor. Has been called but denies other issues. Denies headache, denies neck pain, does complain of some low back pain with some radiation down his leg. Denies any chest pain or shortness of breath, no nausea or vomiting, denies any other GI or urinary symptoms. Denies incontinence. Patient is unsure of tetanus status. History is augmented by his daughter. Patient did ambulate into the department. Related Data Home Medications Medication Instructions Recorded Confirmed atorvastatin 40 mg tablet (Lipitor) 80 mg PO DAILY ##0 01/12/17 08/18/21 cyanocobalamin (vitamin B-12) 1,000 mcg OR Q DAY ##0 01/12/17 08/18/21 1,000 mcg tablet,extended release isosorbide mononitrate 30 mg 30 mg PO DAILY ##0 01/12/17 08/18/21 tablet,extended release 24 hr apixaban 5 mg tablet 5 mg PO BID 08/18/21 08/18/21 aspirin 81 mg tablet 81 mg PO DAILY 08/18/21 08/18/21 dronedarone 400 mg tablet 400 mg PO BID 08/18/21 08/18/21 multivitamin 1 tab PO DAILY 08/18/21 08/18/21 pantoprazole 40 mg tablet,delayed 40 mg PO BID 08/18/21 08/18/21 release trazodone 50 mg tablet 50 mg PO BEDTIME PRN Insomnia 08/18/21 08/18/21 Allergies Allergy/AdvReac Type Severity Reaction Status Date / Time lidocaine [From LidoPatch] AdvReac Blister Verified 09/07/19 11:42 menthol [From LidoPatch] AdvReac Blister Verified 09/07/19 11:42 Review of Systems Review of Systems ROS Unobtainable: All systems reviewed & are unremarkable except as noted in HPI and below Patient History Medical History Chest pain, rule out acute myocardial infarction Social History Smoking Status: Former smoker Smoking Status: Former smoker tobacco type: cigarettes alcohol intake frequency: 0-2 drinks per day Alcohol type: beer and hard liquor Substance Use Type: does not use Exam Narrative Exam Narrative: GEN: C-Patient appears in mild distress. HEAD: Patient has a large laceration of the right parietal scalp, approximately 8 cm, no raccoon/Silva sign. NECK: Nontender, painless range of motion, trachea midline Positive for Nexus criteria, no midline line tenderness, distracting injury, altered mental status, neuro deficit, positive for recent EtOH. EYES: PERRLA, EOMI ENT: External inspection normal, trachea is midline, TM's are normal no hemotypanum, Nares are clear, no septal hematoma, no dental or oral injury, airway is normal and with normal occlusion, No bony tenderness RESP: Chest is nontender and has symmetric movement, no ecchymosis, breath sounds are normal no crackles, wheezes or rales CVS: Heart sounds are normal, no murmur noted, No JVD. ABG/GI: Nontender, soft, normal bowel sounds, no distention, no organomegaly, pelvic rock is negative NEURO: Oriented AOx3, neuro is grossly intact, sensation and motor is normal all 4 extremities moving, cranial nerves II through XII are intact, GCS is 15 PSYCH: Normal mood and affect SKIN: Intact, warm and dry, no crepitus and without decubitus BACK: No CVA tenderness, no vertebral tenderness, no step-off's, no crepitus EXT: Atraumatic, hips are nontender, no pedal edema, normal color and temperature, normal range of motion of extremities with normal tendon exam, 2+ pulses in all four extremities Initial Vital Signs Initial Vital Signs: Vital Signs Temperature 95.8 F L 12/06/23 13:33 Respiratory Rate 16 12/06/23 13:33 Blood Pressure 113/63 12/06/23 13:33 Pulse Oximetry 96 12/06/23 13:33 Oxygen Delivery Method Room Air 12/06/23 13:33 Procedures Laceration Repair Laceration 1: Site: scalp Side (If applicable): right Size (cm): 8 Description: irregular Depth: simple, single layer Local Anesthetic: lidocaine 1% Amount of anesthesia used (mL): 5 Pre-repair: wound explored, irrigated extensively and deep structures intact Skin layer closed with: bora (#11) Course Orders Ordered: ED Orders 12/06/23 13:41 CT cervical spine wo con Stat CT head/brain wo con Stat 12/06/23 13:59 CBC Auto Diff [Complete Blood Count AUTO DIFF] Stat CK [Creatine Kinase] Stat CMP [Comprehensive Metabolic Panel] Stat PTT Partial Thromboplastin Yung Stat Prothrombin Time INR Stat 12/06/23 15:30 CT lumbar spine wo con Stat Discontinued Medications Diphtheria/Tetanus/Acell Pertussis (Tet,Diph,Pertuss(Acell),Vac/Pf 0.5 Ml Syringe) 0.5 ml IM .ONCE ONE Stop: 12/06/23 13:49 Last Admin: 12/06/23 15:19 Dose: 0.5 ml Documented By: SB Vital Signs Vital signs: Vital Signs - 8 hr 12/06/23 13:33 12/06/23 14:01 12/06/23 14:31 Temperature 95.8 F L Pulse Rate 98 H 105 H Respiratory Rate 16 23 26 H Blood Pressure 113/63 131/75 110/57 L Pulse Oximetry 96 100 100 Oxygen Delivery Method Room Air 12/06/23 15:01 12/06/23 15:30 12/06/23 16:00 Temperature 98.0 F Pulse Rate 105 H 85 Respiratory Rate 28 H 24 Blood Pressure 113/82 111/60 121/59 L Pulse Oximetry 98 99 Oxygen Delivery Method Room Air 12/06/23 16:00 12/06/23 16:30 12/06/23 16:31 Temperature Pulse Rate 81 87 87 Respiratory Rate 27 H 28 H 25 H Blood Pressure Pulse Oximetry 99 Oxygen Delivery Method 12/06/23 16:31 12/06/23 17:00 12/06/23 17:00 Temperature Pulse Rate 98 H Respiratory Rate 33 H Blood Pressure 113/62 122/59 L Pulse Oximetry 83 L Oxygen Delivery Method MDM - Trauma Lab Data 12/06/23 13:59 12/06/23 13:59 Labs: Lab Results 12/06/23 Range/Units 13:59 WBC 6.8 (4.5-11.0) X10^3/uL RBC 3.32 L (4.5-5.9) X10^6/uL Hgb 12.2 L (13.5-17.5) g/dL Hct 35.5 L (41-53) % MCV 106.9 H (80-100) fL MCH 36.6 H (26-34) PG MCHC 34.3 (30-36) % RDW 13.4 (11.6-14.8) % Plt Count 184 (150-400) X10^3/uL Neut % (Auto) 86.4 H (50-75) % Lymph % (Auto) 5.6 L (25-40) % Moore % (Auto) 7.8 (3-14) % Eos % (Auto) 0.0 L (2-4) % Baso % (Auto) 0.2 (0-2) % Neut # (Auto) 5900 (2851-5142) /uL Lymph # (Auto) 400 L (7296-6651) /uL Moore # (Auto) 500 (0-900) /uL Eos # (Auto) 0 (0-450) /uL Baso # (Auto) 0 (0-100) /uL PT 12.0 (9.4-12.5) SECONDS INR 1.0 (0.9-1.3) APTT 32 (25.1-36.5) SECONDS Sodium 135 L (137-145) mmol/L Potassium 4.3 (3.4-5.1) mmol/L Chloride 101 (98-107) mmol/L Carbon Dioxide 20 L (22-32) mmol/L BUN 6 L (9-20) mg/dL Creatinine 0.74 (0.66-1.25) mg/dL Estimated GFR > 60 (>60) mL/min BUN/Creatinine Ratio 8.1 (6-22) Glucose 102 (80-110) mg/dL Calcium 8.2 L (8.4-10.2) mg/dL Total Bilirubin 1.1 (0.2-1.3) mg/dL AST 109 H (17-59) IU/L ALT 55 H (<50) IU/L Alkaline Phosphatase 118 (38-126) U/L Total Creatine Kinase 288 H (55-170) U/L Total Protein 6.7 (6.3-8.2) g/dL Albumin 3.3 L (3.5-5.0) g/dL Globulin 3.4 (1.7-4.1) g/dL Albumin/Globulin Ratio 1.0 (1.0-2.8) Imaging Data CT scan - head: Radiologist's Impression: Close Lumbar Spine CT 12/06/[address] (Signed) Lito Gaines - 12/06/[address] (Signed) Lito Gaines - 12/06/[address] (Signed) Dmitry Garcia - 08/18/[address] (Signed) Dmitry Garcia - 08/18/21 Chest X-Ray (Signed) Dmitry Garcia - 08/18/21 Wrist X-Ray (Signed) Efrain Lee - 05/16/20 Ribs X-Ray (Signed) Jaquan Nuno - 09/07/19 Chest/Abdomen/Pelvis CT (Signed) Andrew Hirsch - 08/30/[address] (Signed) Janett Bautista - 08/30/19 Launch?[place] [address] CT Scan Report Signed Patient: Janett Mix MR#: [id number] : 1935 Acct:[id number] Age/Sex: 88 / M Date of Service: 12/06/23 Loc: ED Accession Number: [id number] Procedure: CT head/brain wo con Ordering Provider: Farheen Alcocer D.O. PROCEDURE: CT HEAD/BRAIN WO CON INDICATIONS: fall, large head LAC, on thinners, unstable gait TECHNIQUE: Noncontrast 4.5 mm thick angled axial sections acquired from the foramen magnum to the vertex, with coronal and sagittal reformats. For radiation dose reduction, the following was used: automated exposure control, adjustment of mA and/or kV according to patient size. COMPARISON: [facility], CT, CT CERVICAL SPINE WO CON, 12/06/2023, 13:47. (Additional prior imaging is not available for review from the archive at the time of this dictation.) FINDINGS: Image quality: Diagnostic. CSF spaces: Basal cisterns are patent. No extra-axial fluid collections. The ventricles are symmetric in size and shape. Brain: No intracranial bleeds or masses. There is cerebral volume loss for age, with resultant ventricular and sulcal prominence. There are periventricular and deep white matter chronic small vessel ischemic changes. There is intracranial internal carotid artery atherosclerosis. Skull and face: A moderate scalp hematoma can be seen on the right, without an associated fracture. Calvarium and visualized facial bones appear intact, without suspicious lesions. Sinuses: Visualized sinuses and mastoids are clear. IMPRESSION: Moderate right-sided scalp hematoma seen. No displaced calvarial fracture can be seen. No acute intracranial hemorrhage is seen. No acute intracranial process is seen. Dictated by: Lito Gaines M.D. on 12/06/2023 at 13:21 Approved by: Lito Gaines M.D. on 12/06/2023 at 13:21 CT - cervical spine: Radiologist's Impression: Close Lumbar Spine CT 12/06/[address] (Signed) Lito Gaines - 12/06/[address] (Signed) Lito Gaines - 12/06/[address] (Signed) Dmitry Garcia - 08/18/[address] (Signed) Dmitry Garcia - 08/18/21 Chest X-Ray (Signed) Dmitry Garcia - 08/18/21 Wrist X-Ray (Signed) Efrain Lee - 05/16/20 Ribs X-Ray (Signed) Jaquan Nuno - 09/07/19 Chest/Abdomen/Pelvis CT (Signed) Andrew Hirsch - 08/30/[address] (Signed) Janett Bautista - 08/30/[address] [address] [address] Scan Report Signed Patient: Janett Mix MR#: [id number] : 1935 Acct:[id number] Age/Sex: 88 / M Date of Service: 12/06/23 Loc: ED Accession Number: [id number] Procedure: CT cervical spine wo con Ordering Provider: Farheen Alcocer D.O. PROCEDURE: CT CERVICAL SPINE WO CON INDICATIONS: fall, large head LAC, on thinners, unstable gait TECHNIQUE: Noncontrast 3 mm thick sections acquired from the skull base to the T4 level. Sagittal and coronal reformats were then constructed. For radiation dose reduction, the following was used: automated exposure control, adjustment of mA and/or kV according to patient size. COMPARISON: [facility], CT, CT HEAD/BRAIN WO [facility], 12/06/2023, 13:47. (Additional prior imaging is not available for review from the archive at the time of this dictation.) FINDINGS: Image quality: Excellent. Bones: No fractures or dislocations. Visualized superior ribs are intact. Anterior fixation hardware can be seen C5 through C7, with disc spacers C5-C6 C6-C7. No findings of hardware failure or hardware loosening are seen. Multiple levels underlying cervical spine change seen including moderate to severe disc space narrowing at C4-C5 and C7-T1. Upper thoracic spine degenerative change can be seen. Sternotomy wires are seen. Soft tissues: Prevertebral soft tissues are normal in thickness. No paravertebral hematomas. No apical pneumothoraces. Atherosclerotic calcification is noted. IMPRESSION: No displaced fracture or traumatic subluxation. Intact appearing C5 through C7 anterior fixation hardware. Additional findings: Sternotomy Dictated by: Lito Gaines M.D. on 12/06/2023 at 13:17 Approved by: Lito Gaines M.D. on 12/06/2023 at 13:[address]: Radiologist's Impression: Janett Mix??88??M??1935 ? Allergy/Adv: lidocaine, menthol Close Lumbar Spine CT (Signed) Lito Gaines - 12/06/[address] (Signed) Lito Gaines - 12/06/[address] (Signed) Lito Gaines - 12/06/[address] (Signed) Dmitry Garcia - 08/18/[address] (Signed) Dmitry Garcia - 08/18/21 Chest X-Ray (Signed) Dmitry Garcia - 08/18/21 Wrist X-Ray (Signed) Efrain Lee - 05/16/20 Ribs X-Ray (Signed) Jaquan Nuno - 09/07/19 Chest/Abdomen/Pelvis CT (Signed) Andrew Hirsch - 08/30/[address] (Signed) Janett Bautista - 08/30/19 Launch?Image [address] [address] [address] Scan Report Signed Patient: Janett Mix MR#: [id number] : 1935 Acct:[id number] Age/Sex: 88 / M Date of Service: 12/06/23 Loc: ED Accession Number: [id number] Procedure: CT lumbar spine wo con Ordering Provider: Farheen Alcocer D.O. PROCEDURE: CT LUMBAR SPINE WO CON INDICATIONS: lower back pain radiates down leg. able to ambulate TECHNIQUE: Noncontrast 3 mm thick sections acquired from the T12 level to the sacrum. Sagittal and coronal reformats were constructed. For radiation dose reduction, the following was used: automated exposure control. COMPARISON: [facility], CT, CT CERVICAL SPINE WO CON, 12/06/2023, 13:47. [facility], CT, CT HEAD/BRAIN WO CON, 12/06/2023, 13:47. [facility], CT, L- SPINE WITHOUT CONTRAST, 09/24/2016, 10:07. (Additional prior imaging is not available for review from the archive at the time of this dictation.) FINDINGS: Image quality: Excellent. Bones: No acute vertebral body compression fractures. No suspicious lytic or blastic bony lesions. No pars defects. Mild to moderate levoconvex scoliotic curvature is noted. T12-L1: Moderate loss of disc height is seen. Endplate moderate disc bulge is seen. Dense calcification can be seen along the posterior aspect of the T12 vertebral body and the T11 vertebral body. Moderate bilateral neural foraminal narrowing is seen. Moderate central canal narrowing is seen. When comparison is made with the prior images, these findings are similar. L1-L2: The disc height is relatively well preserved. Mild to moderate disc bulge is seen at this level. There is moderate left-sided and at least moderate right- sided neural foraminal narrowing. Moderate central canal narrowing is seen. When comparison is made with the prior images, these findings are similar. L2-L3: There is at least moderate loss of disc height seen on the right-side. Endplate irregularity and sclerosis can be seen. Bridging endplate osteophytes can be seen on the right, as on series 4, image 19. There is at least moderate bilateral neural foraminal narrowing, right worse than left. Mild central canal narrowing is seen. There is mild progression compared to 2017. L3-L4: The disc height is relatively well preserved. Moderate disc bulge is seen, which is eccentric to the right. There is moderate left-sided and moderate to severe right-sided neural foraminal narrowing. No significant central canal narrowing is seen. No significant change from the prior. L4-L5: The disc height is well preserved. Mild to moderate disc bulge is seen. Moderate to prominent facet hypertrophy can be seen at this level. There is moderate left-sided and moderate to severe right-sided neural foraminal narrowing. Mild central canal narrowing is seen. These degenerative changes are similar to 2017 L5-S1: At least moderate loss of disc height is seen at this level on the left side. Moderate disc bulge is seen at this level. Partially bridging endplate osteophytes can be seen on the left, as on series 4, image 21. Moderate facet joint hypertrophy is seen. There is at least moderate bilateral neural foraminal narrowing seen. Mild central canal narrowing is seen. Soft tissues: No retroperitoneal masses or hematomas. Visualized aorta is normal in caliber. Atherosclerotic calcification is noted. There is a moderate hiatal hernia. Colonic diverticulosis is seen, without findings of active diverticulitis. IMPRESSION: Negative for acute fracture. Multiple levels degenerative change can be seen, which are overall worst at L2- L3 and L5-S1. [id number] levoconvex lumbar scoliosis is seen. Additional findings: Moderate hiatal hernia Diverticulosis, without active diverticulitis Dictated by: Lito Gaines M.D. on 12/06/2023 at 15:10 Approved by: Lito Gaines M.D. on 12/06/2023 at 15:17 [facility] Narrative Medical decision making narrative: Head CT shows no bleed, or other acute intracranial process. Cervical C-spine CT shows intact appearing C5 through C7 anterior fixation hardware no displaced fracture or traumatic subluxation. Lumbar spine CT, negative for acute fracture multiple levels of degenerative changes overall worse at L2-3 and L5-S1 [id number] levoconvex lumbar scoliosis. Moderate hiatal hernia diverticulosis without active diverticulitis. Labs show white count of 6.8 hemoglobin of 12.2 platelets of 184, patient's hemoglobin is improved compared to prior in August. Coags are negative sodium is 135 potassium 4.3 chloride 101 CO2 is 20 BUN 6 creatinine 0.74 glucose is 102, AST is 109 ALT is 55 bilirubin is 1.1 alk-phos is 118 creatinine is 288. Patient had laceration repaired. Tolerated well. Patient has ambulated here in the department. Daughters at bedside we will spend the night with him felt appropriate for discharge home. Discussed risks versus benefits of continuing anticoagulation as patient still drink alcohol does fall occasionally. Discharge Plan Departure Patient Disposition: Home Clinical Impression: Laceration of scalp Instructions: DI for Laceration Repair -- [place], DI for Closed Head Injury Activity Restrictions/Additional Instructions: Please follow up with your physician for recheck. Discussed risks versus benefits of continuing anticoagulation versus fall risk. Follow up in 7-10 days for removal of your bora. You can follow up with primary care, urgent care or the emergency department. Wound Care: Keep wound(s) clean and dry. Wash daily with soap and water only. Do not use over the counter products (alcohol or peroxide)on the wounds unless instructed by a physician. If wound condition worsens (increased/expanding redness, developing fluid blisters, or worsening pain), either contact your doctor for an urgent re- assessment , or return to the Emergency Department. Please return for redness or swelling at the laceration site, severe headaches, sudden changes to mentation, new neck or back pain, new weakness numbness or loss of sensation, inability to ambulate safely, new chest pain or shortness of breath, persistent vomiting or other new or concerning changes. Prescriptions: No Action atorvastatin [Lipitor] 40 MG tablet 80 mg PO DAILY Qty: 0 cyanocobalamin (vitamin B-12) 1,000 MCG tablet extended release 1,000 mcg OR Q DAY Qty: 0 isosorbide mononitrate 30 MG tablet extended release 24 hr 30 mg PO DAILY Qty: 0 multivitamin [Daily Multivitamin] Tablet 1 tab PO DAILY trazodone 50 mg Tablet 50 mg PO BEDTIME PRN (Reason: Insomnia) pantoprazole 40 mg Tablet,Delayed Release (Dr/Ec) 40 mg PO BID Adult Low Dose Aspirin 81 mg Tablet 81 mg PO DAILY dronedarone 400 mg Tablet 400 mg PO BID Rx Instructions: must administer with a meal/food apixaban 5 mg Tablet 5 mg PO BID Referrals: Miscellaneous,Doctor, MD [Primary Care Provider] - Stand Alone Forms: Patient Portal/API
== END 2023-12-06 17:35 | disposition home or self-care (01) ==
PROVIDERS: Emergency Provider Emergency Medicine
DX: S01.01XA Laceration without foreign body of scalp, initial encounter (principal); W18.30XA Fall on same level, unspecified, initial encounter; Z79.01 Long term (current) use of anticoagulants; Z86.79 Personal history of other diseases of the circulatory system; Z23 Encounter for immunization; R26.89 Other abnormalities of gait and mobility
CPT/HCPCS: 12004; 36415; 70450; 72125; 72131; 80053; 82550; 85025; 85610; 85730; 90471; 99285; 90715

== ENCOUNTER 2023-12-16 13:01 | Emergency (ER) | payer MEDICARE, OTHER, SELFPAY ==
[2023-12-16 13:10] VITALS: BP 78/53; PULSE 89; RESP 18; TEMP 37.1; O2SAT 98; BMI 21.6
[2023-12-16 13:15] VITALS: BP 90/54; PULSE 92; RESP 16; O2SAT 97
[2023-12-16 13:24] VITALS: BP 109/66; BP 110/72; BP 79/54; PULSE 76; PULSE 85; PULSE 88
--- NOTE | 2023-12-16 13:33 | PC.NURSE ---
Dr Bush aware of pts bp. Pt denies dizziness with position change. She ordered pt drink some PO fluids
[2023-12-16 14:04] VITALS: BP 118/74
--- NOTE | 2023-12-16 14:04 | PC.NURSE ---
11 bora removed. No bleeding noted,no drainage noted. wound edges intact.
== END 2023-12-16 15:59 | disposition left against medical advice (07) ==
PROVIDERS: Emergency Provider Emergency Medicine
CPT/HCPCS: 99281